=== PATIENT | male | born 1955 | race Caucasian/White ===

== ENCOUNTER 2017-08-17 12:28 | Inpatient (IN) | payer MEDICAID, MEDICARE ==
[2017-08-17 13:04] LABS: ADD MAN DIFF? NO
[2017-08-17 13:07] LABS: BASOPHILS % 0.4 % (0.0-2.0); EOSINOPHILS # 0.4 10^3/ul (0.0-0.5); EOSINOPHILS % 5.2 % (0.0-7.0); HEMATOCRIT 33.9 % (42.0-52.0); HEMOGLOBIN 11.8 g/dl (14.0-18.0); LYMPHOCYTES # 1.8 10^3/ul (0.8-2.9); LYMPHOCYTES % 24.1 % (15.0-51.0); MEAN CORPUSCULAR HEMOGLOBIN 31.5 pg (29.0-33.0); MEAN CORPUSCULAR HGB CONC 34.8 g/dl (32.0-37.0); MEAN CORPUSCULAR VOLUME 90.4 fl (82.0-101.0); MONOCYTE # 0.7 10^3/ul (0.3-0.9); MONOCYTES % 9.5 % (0.0-11.0); NEUTROPHIL # 4.4 10^3/ul (1.6-7.5); NEUTROPHILS % 60.7 % (39.0-77.0); PLATELET COUNT 219 10^3/UL (140-415); RED BLOOD COUNT 3.75 10^6/ul (4.70-6.10); RED CELL DISTRIBUTION WIDTH 11.9 % (11.5-14.5)
[2017-08-17 13:07] LABS: WHITE BLOOD COUNT 7.3 10^3/ul (4.8-10.8)
[2017-08-17 13:18] LABS: ALANINE AMINOTRANSFERASE 21 IU/L (13-69); ALBUMIN 4.7 g/dl (3.3-4.9); ALBUMIN/GLOBULIN RATIO 1.38; ALKALINE PHOSPHATASE 99 IU/L (42-121); ANION GAP 19 (8-16); ASPARTATE AMINO TRANSFERASE 28 IU/L (15-46); BILIRUBIN,INDIRECT 0.3 mg/dl (0-1.1); BILIRUBIN,TOTAL 0.3 mg/dl (0.2-1.3); BLOOD UREA NITROGEN 19 mg/dl (7-20); CALCIUM 8.8 mg/dl (8.4-10.2); CARBON DIOXIDE 29 mmol/L (21-31); CHLORIDE 98 mmol/L (97-110); CREATININE 4.65 mg/dl (0.61-1.24); GLUCOSE 166 mg/dl (70-220); LIPASE 246 U/L (23-300); POTASSIUM 3.9 mmol/L (3.5-5.1); SODIUM 142 mmol/L (135-144); TOTAL PROTEIN 8.1 g/dl (6.1-8.1)
[2017-08-17 13:27] LABS: INR 0.84; PARTIAL THROMBOPLASTIN TIME 27.5 Sec (25.0-35.0); PROTIME 11.6 Sec (11.9-14.9); PT RATIO 0.9
[2017-08-17 13:31] LABS: TROPONIN-I < 0.012 ng/ml (0.000-0.120)
[2017-08-17] MEDS ORDERED: NACL 0.9% 3 ML SYG IV (15:30)
[2017-08-17] MEDS ORDERED: ONDANSETRON 4 MG INJ IV (15:30)
[2017-08-17] MEDS: SEVELAMER CARBONATE 0.8 GM PKT PO (17:40)
[2017-08-18] MEDS: PANTOPRAZOLE (EC) 40 MG TAB PO (06:13)
[2017-08-18] MEDS ORDERED: CEFAZOLIN 1 GM INJ (07:00)
[2017-08-18 07:09] LABS: ADD MAN DIFF? NO
[2017-08-18 07:27] LABS: BASOPHILS % 0.7 % (0.0-2.0); EOSINOPHILS # 0.6 10^3/ul (0.0-0.5); EOSINOPHILS % 10.2 % (0.0-7.0); HEMATOCRIT 34.7 % (42.0-52.0); HEMOGLOBIN 11.7 g/dl (14.0-18.0); LYMPHOCYTES # 1.2 10^3/ul (0.8-2.9); LYMPHOCYTES % 21.8 % (15.0-51.0); MEAN CORPUSCULAR HEMOGLOBIN 31.8 pg (29.0-33.0); MEAN CORPUSCULAR HGB CONC 33.7 g/dl (32.0-37.0); MEAN CORPUSCULAR VOLUME 94.3 fl (82.0-101.0); MEAN PLATELET VOLUME 9.9 fl (7.4-10.4); MONOCYTE # 0.6 10^3/ul (0.3-0.9); MONOCYTES % 10.5 % (0.0-11.0); NEUTROPHIL # 3.1 10^3/ul (1.6-7.5); NEUTROPHILS % 56.6 % (39.0-77.0); PLATELET COUNT 221 10^3/UL (140-415); RED BLOOD COUNT 3.68 10^6/ul (4.70-6.10); RED CELL DISTRIBUTION WIDTH 12.2 % (11.5-14.5)
[2017-08-18 07:27] LABS: WHITE BLOOD COUNT 5.5 10^3/ul (4.8-10.8)
[2017-08-18] MEDS: SEVELAMER CARBONATE 0.8 GM PKT PO ×3 (07:35→15:41)
[2017-08-18 07:50] LABS: ANION GAP 17 (8-16); BLOOD UREA NITROGEN 30 mg/dl (7-20); CALCIUM 8.7 mg/dl (8.4-10.2); CARBON DIOXIDE 28 mmol/L (21-31); CHLORIDE 101 mmol/L (97-110); CREATININE 6.84 mg/dl (0.61-1.24); GLUCOSE 98 mg/dl (70-220); MAGNESIUM 2.1 mg/dl (1.7-2.5); PHOSPHORUS 5.5 mg/dl (2.5-4.9); POTASSIUM 4.9 mmol/L (3.5-5.1); SODIUM 141 mmol/L (135-144)
[2017-08-18] MEDS: THIAMINE 100 MG TAB PO (08:23)
[2017-08-18] MEDS: HEPARIN 5,000 UNIT/0.5 ML VIAL SC ×3 (08:23→20:52)
[2017-08-18] MEDS: CALCIUM CARBONATE 1.25 GM TAB PO (08:23)
[2017-08-18] MEDS: DEXTROSE 5%-0.45% NACL 1,000 ML IV (16:18)
[2017-08-18 16:41] LABS: HEPATITIS B SURFACE ANTIGEN NEGATIVE (NEGATIVE)
[2017-08-18 16:59] LABS: HEPATITIS B SURFACE ANTIBODY POSITIVE (NEGATIVE)
[2017-08-18] MEDS ORDERED: FENTAnyl 50 MCG/ML VIAL (19:24)
[2017-08-18] MEDS ORDERED: VANCOMYCIN 1 GM INJ (19:27)
[2017-08-18] MEDS: BUPIVACAINE 0.5% (SDV) 30 ML INJ (20:05)
[2017-08-18] MEDS: LIDOCAINE 1% (MPF) 30 ML INJ (20:05)
[2017-08-18] MEDS: HEPARIN 1000 UNITS/ML 10 ML INJ (20:06)
[2017-08-18] MEDS: IOHEXOL 300MG/ML 30 ML BTL ×2 (20:08)
[2017-08-19] MEDS: PANTOPRAZOLE (EC) 40 MG TAB PO (05:39)
[2017-08-19 06:11] LABS: ADD MAN DIFF? NO
[2017-08-19 06:13] LABS: BASOPHIL # 0.1 10^3/ul (0.0-0.1); BASOPHILS % 0.6 % (0.0-2.0); EOSINOPHILS # 0.5 10^3/ul (0.0-0.5); EOSINOPHILS % 5.9 % (0.0-7.0); HEMATOCRIT 32.5 % (42.0-52.0); HEMOGLOBIN 10.9 g/dl (14.0-18.0); LYMPHOCYTES # 1.5 10^3/ul (0.8-2.9); LYMPHOCYTES % 17.3 % (15.0-51.0); MEAN CORPUSCULAR HEMOGLOBIN 31.8 pg (29.0-33.0); MEAN CORPUSCULAR HGB CONC 33.5 g/dl (32.0-37.0); MEAN CORPUSCULAR VOLUME 94.8 fl (82.0-101.0); MEAN PLATELET VOLUME 10.4 fl (7.4-10.4); MONOCYTE # 0.7 10^3/ul (0.3-0.9); MONOCYTES % 8.5 % (0.0-11.0); NEUTROPHIL # 5.8 10^3/ul (1.6-7.5); NEUTROPHILS % 67.5 % (39.0-77.0); PLATELET COUNT 228 10^3/UL (140-415); RED BLOOD COUNT 3.43 10^6/ul (4.70-6.10); RED CELL DISTRIBUTION WIDTH 12.3 % (11.5-14.5)
[2017-08-19 06:13] LABS: WHITE BLOOD COUNT 8.6 10^3/ul (4.8-10.8)
[2017-08-19 07:01] LABS: ANION GAP 22 (8-16); BLOOD UREA NITROGEN 44 mg/dl (7-20); CALCIUM 8.8 mg/dl (8.4-10.2); CARBON DIOXIDE 23 mmol/L (21-31); CHLORIDE 99 mmol/L (97-110); GLUCOSE 81 mg/dl (70-220); MAGNESIUM 2.2 mg/dl (1.7-2.5); PHOSPHORUS 5.7 mg/dl (2.5-4.9); POTASSIUM 4.6 mmol/L (3.5-5.1); SODIUM 139 mmol/L (135-144)
[2017-08-19] MEDS: SEVELAMER CARBONATE 0.8 GM PKT PO ×3 (08:39→17:17)
[2017-08-19] MEDS: HEPARIN 5,000 UNIT/0.5 ML VIAL SC ×2 (08:41→21:18)
[2017-08-19] MEDS: CALCIUM CARBONATE 1.25 GM TAB PO (08:41)
[2017-08-19] MEDS: THIAMINE 100 MG TAB PO (08:45)
[2017-08-19] MEDS: ACETAMINOPHEN 325 MG TAB PO (21:38)
[2017-08-20 05:22] LABS: ANION GAP 18 (8-16); BLOOD UREA NITROGEN 52 mg/dl (7-20); CALCIUM 8.9 mg/dl (8.4-10.2); CARBON DIOXIDE 22 mmol/L (21-31); CHLORIDE 104 mmol/L (97-110); CREATININE 8.67 mg/dl (0.61-1.24); GLUCOSE 91 mg/dl (70-220); SODIUM 139 mmol/L (135-144)
[2017-08-20] MEDS: PANTOPRAZOLE (EC) 40 MG TAB PO (05:28)
[2017-08-20] MEDS: ACETAMINOPHEN 325 MG TAB PO ×2 (05:33→20:38)
[2017-08-20] MEDS: CALCIUM CARBONATE 1.25 GM TAB PO (08:22)
[2017-08-20] MEDS: THIAMINE 100 MG TAB PO (08:22)
[2017-08-20] MEDS: SEVELAMER CARBONATE 0.8 GM PKT PO ×3 (08:22→17:06)
[2017-08-20] MEDS: HEPARIN 5,000 UNIT/0.5 ML VIAL SC ×2 (08:25→20:39)
[2017-08-20] MEDS: HEPARIN 1000 UNITS/ML 10 ML INJ CATHETER (12:16)
[2017-08-20] MEDS: EPOETIN 10000 UNITS/1 ML INJ (ESRD) SC (13:38)
[2017-08-21] MEDS: ACETAMINOPHEN 325 MG TAB PO (05:09)
[2017-08-21] MEDS: PANTOPRAZOLE (EC) 40 MG TAB PO (05:09)
[2017-08-21] MEDS: CALCIUM CARBONATE 1.25 GM TAB PO (08:24)
[2017-08-21] MEDS: SEVELAMER CARBONATE 0.8 GM PKT PO ×3 (08:25→17:46)
[2017-08-21] MEDS: THIAMINE 100 MG TAB PO (08:25)
[2017-08-21] MEDS: HEPARIN 5,000 UNIT/0.5 ML VIAL SC (08:26)
== END 2017-08-21 18:48 | disposition home health service (06) | DRG 314 ==
LOC: PP2 16:15 → E/R 12:28 → PP2 13:45
PROC: 02HV33Z Insertion of Infusion Device into Superior Vena Cava, Percutaneous Approach (ICD-10-PCS; principal; 2017-08-18 18:00)
PROC: B548ZZA Ultrasonography of Superior Vena Cava, Guidance (ICD-10-PCS; 2017-08-18 19:15)
PROC: 5A1D70Z Performance of Urinary Filtration, Intermittent, Less than 6 Hours Per Day (ICD-10-PCS; 2017-08-18 19:15)
PROC: 5A1D70Z Performance of Urinary Filtration, Intermittent, Less than 6 Hours Per Day (ICD-10-PCS; 2017-08-18 19:15)
DX: T82.868A Thrombosis due to vascular prosthetic devices, implants and grafts, initial encounter (principal); N18.6 End stage renal disease; I12.0 Hypertensive chronic kidney disease with stage 5 chronic kidney disease or end stage renal disease; D64.9 Anemia, unspecified; R07.9 Chest pain, unspecified; D63.1 Anemia in chronic kidney disease; M54.2 Cervicalgia; I70.203 Unspecified atherosclerosis of native arteries of extremities, bilateral legs; Z99.2 Dependence on renal dialysis; Y84.8 Other medical procedures as the cause of abnormal reaction of the patient, or of later complication, without mention of misadventure at the time of the procedure; Y92.531 Health care provider office as the place of occurrence of the external cause
CPT/HCPCS: 36415; 71045; 71046; 76000; 80048; 80053; 83690; 83735; 84100; 84484; 85025; 85610; 85730; 86706; 87081; 87340; 90935; 93005; 93306; 93923; 93970; 99217; 99285-25; G0378